=== PATIENT | female | born 1970 | race Caucasian/White ===

== ENCOUNTER 2017-08-08 07:20 | Outpatient (CLI) | payer OTHER ==
--- NOTE | 2017-08-08 16:41 | CT Report ---
EXAM: CT LUMBAR SPINE WITHOUT CONTRAST EXAM DATE: 08/08/2017 08:04 AM. CLINICAL HISTORY: Pain, decreased range of motion, trauma. COMPARISONS: None. TECHNIQUE: Thin-section axial images were acquired of the lumbar spine from T12 to S1 without contras t. Post-processing: Coronal and sagittal reformats. Other: None. In accordance with CT protocol optimization, one or more of the following dose reduction techniques w ere utilized for this exam: automated exposure control, adjustment of mA and/or KV based on patient s ize, or use of iterative reconstructive technique. FINDINGS: Alignment: No scoliosis. 3 mm retrolisthesis at L5 on S1. Bones: Five [id number]-gctesiw lumbar vertebral bodies are present. No evidence of acute or subacute fra cture. No bone lesion. Disk Levels/Facets: Mild disk height loss and vacuum disk formation at L5-S1. Minimal disk height los s at L4-L5 with osteophytes. Evaluation of the soft tissues of the central canal mildly limited on CT . T12-L1: Unremarkable. L1-L2: Unremarkable. L2-L3: Unremarkable. L3-L4: Minimal broad-based disk bulge. No stenosis. L4-L5: Small broad-based disk bulge extending into bilateral neural foramen. Minimal bilateral facet hypertrophy. Disk effaces the anterior aspect of the thecal sac. No gross stenosis. L5-S1: Small broad-based disk bulge with subtle osteophyte. Minimal bilateral facet hypertrophy. Disk minimally effaces the anterior aspect of the thecal sac and may contact the bilateral traversing S1 nerve roots. No neural foramen stenosis. Musculature: No fatty atrophy. Other: Minimal atherosclerosis. The visualized retroperitoneum is otherwise unremarkable. Mild degenerative changes at the sacroiliac joints. IMPRESSION: 1. No evidence of acute or subacute fracture. 2. Mild degenerative disk and minimal degenerative facet changes in the lower lumbar spine. 3. Small disk osteophyte complex L5-S1 minimally effaces the anterior aspect of the thecal sac and ma y contact the bilateral traversing S1 nerve roots. 4. Small broad-based disk bulge at L4-L5 minimally effaces the anterior aspect of the thecal sac. 5. No gross central canal or neural foramen stenosis. [facility] Referring Provider Line: [phone] SITE ID: [id number]
--- NOTE | 2017-08-08 16:41 | CT Report ---
EXAM: CT THORACIC SPINE WITHOUT CONTRAST EXAM DATE: 08/08/2017 08:04 AM. CLINICAL HISTORY: Pain, decreased range of motion, trauma. COMPARISONS: Chest radiographs 02/05/2008. TECHNIQUE: Thin-section axial images were acquired of the thoracic spine from C7 to L1 without contra st. Post-processing: Coronal and sagittal reformats. Other: None. IV Contrast: None. In accordance with CT protocol optimization, one or more of the following dose reduction techniques w ere utilized for this exam: automated exposure control, adjustment of mA and/or KV based on patient s ize, or use of iterative reconstructive technique. FINDINGS: Alignment: Mild S-shaped curvature with convex left component in the upper thoracic spine and convex right component in the mid thoracic spine. No spondylolisthesis. Bones: Evaluation of the cervicothoracic junction mildly limited due to attenuation artifact and kaylin on. No evidence of acute or subacute fracture. Small Schmorl's node at the superior endplate of T8. Disk Levels/Facets: Minimal disk height loss and anterior osteophytes in the midthoracic spine. Evaluation for small disk herniation limited on CT. C6-C7: Small disk osteophyte complex partially visualized. Minimal central canal stenosis. C7-t1: Minimal disk osteophyte complex. Mild right and moderate left facet hypertrophy. No stenosis. T1-T2: Mild bilateral facet hypertrophy. No stenosis. T2-T3: Minimal bilateral facet hypertrophy. No stenosis. T3-T4: Minimal bilateral facet hypertrophy. No stenosis. T4-T5: Minimal bilateral facet hypertrophy. No stenosis. T5-T6: Unremarkable. T6-T7: Unremarkable. T7-T8: Unremarkable. T8-T9: Unremarkable. T9-T10: Minimal bilateral facet hypertrophy. No stenosis. T10-T11: Minimal bilateral facet hypertrophy. No stenosis. T11-T12: Minimal bilateral facet hypertrophy. No stenosis. T12-L1: Unremarkable. Musculature: No fatty atrophy. Other: The visualized mediastinum, lungs, and upper abdomen are unremarkable. IMPRESSION: 1. No evidence of acute or subacute fracture. 2. Mild S-shaped curvature. 3. Minimal degenerative disk and mild degenerative facet changes. 4. No gross central canal or neural foramen stenosis. [facility] Referring Provider Line: [phone] SITE ID: [id number]
== END 2017-08-08 07:21 | disposition home or self-care (01) ==
LOC: DI 07:20
PROVIDERS: ATTEND Physician Assistant
DX: M47.894 Other spondylosis, thoracic region (principal); M41.84 Other forms of scoliosis, thoracic region; M51.34 Other intervertebral disc degeneration, thoracic region; M51.36 Other intervertebral disc degeneration, lumbar region; M51.37 Other intervertebral disc degeneration, lumbosacral region; M47.896 Other spondylosis, lumbar region; M47.897 Other spondylosis, lumbosacral region; M43.17 Spondylolisthesis, lumbosacral region
CPT/HCPCS: 72128; 72131

== ENCOUNTER 2020-02-15 07:32 | Outpatient (CLI) | payer BC, OTHER ==
[2020-02-15 15:50] LABS: ALBUMIN 4.6 g/dL (3.2-5.5); ALBUMIN/GLOBULIN RATIO 1.6 (1.0-2.2); ALKALINE PHOSPHATASE 65 IU/L (42-121); ALT ALANINE AMINOTRANSFERASE 16 IU/L (10-60); AST ASPARTATE AMINOTRANSFERASE 21 IU/L (10-42); BILIRUBIN,TOTAL 0.8 mg/dL (0.2-1.0); BUN - BLOOD UREA NITROGEN 23 mg/dL (6-20); CALCIUM 9.7 mg/dL (8.5-10.3); CARBON DIOXIDE - CO2 27 mmol/L (21-32); CHLORIDE 104 mmol/L (101-111); CHOL/HDL RATIO 4.7 (<4.4); CHOLESTEROL 279 mg/dL; CREATININE 0.8 mg/dL (0.4-1.0); GLUCOSE 93 mg/dL (70-100); HDL CHOLESTEROL 59 mg/dL; LDL CHOLESTEROL,CALCULATED 197 mg/dL; LDL/HDL RATIO 3.3 (<4.4); SODIUM 140 mmol/L (135-145); TOTAL PROTEIN 7.4 g/dL (6.7-8.2); VLDL CHOLESTEROL 23 mg/dL
== END 2020-02-15 07:33 | disposition home or self-care (01) ==
LOC: LAB.S 07:32
PROVIDERS: ATTEND Internal Medicine
DX: E78.5 Hyperlipidemia, unspecified (principal); Z82.3 Family history of stroke
CPT/HCPCS: 36415; 80053; 80061; 83721; 84443

== ENCOUNTER 2022-05-26 11:08 | Outpatient (CLI) | payer BC | END 2022-05-26 11:09 | disposition short-term general hospital (02) | LOC: EMS 11:08 | DX: R55 Syncope and collapse (principal); R10.9 Unspecified abdominal pain | CPT/HCPCS: A0425; A0429 ==

== ENCOUNTER 2022-07-22 08:56 | Outpatient (CLI) | payer BC ==
[2022-07-22 14:39] LABS: BASOPHILS % (AUTO) 0.9 %; EOSINOPHILS # (AUTO) 0.1 10^3/uL (0.0-0.7); EOSINOPHILS % (AUTO) 2.9 %; HGB - HEMOGLOBIN 11.7 g/dL (12.0-16.0); LYMPHOCYTES # (AUTO) 1.9 10^3/uL (1.5-3.5); LYMPHOCYTES % (AUTO) 54.4 %; MEAN CORPUSCULAR HEMOGLOBIN 29.1 pg (27.0-31.0); MEAN CORPUSCULAR HGB CONC 32.5 g/dL (32.0-36.0); MEAN CORPUSCULAR VOLUME 89.6 fL (81.0-99.0); MEAN PLATELET VOLUME 11.5 fL (7.9-10.8); MONOCYTES # (AUTO) 0.4 10^3/uL (0.0-1.0); MONOCYTES % (AUTO) 10.3 %; NEUTROPHILS # (AUTO) 1.1 10^3/uL (1.5-6.6); NEUTROPHILS % (AUTO) 31.5 %; PLT - PLATELET COUNT 150 10^3/uL (130-450); RED BLOOD COUNT 4.02 10^6/uL (4.20-5.40); RED CELL DISTRIBUTION WIDTH 12.3 % (12.0-15.0); WHITE BLOOD COUNT 3.4 x10^3/uL (4.8-10.8)
[2022-07-22 15:01] LABS: ALBUMIN 4.2 g/dL (3.2-5.5); ALBUMIN/GLOBULIN RATIO 1.5 (1.0-2.2); ALKALINE PHOSPHATASE 62 IU/L (42-121); ALT ALANINE AMINOTRANSFERASE 13 IU/L (10-60); AST ASPARTATE AMINOTRANSFERASE 21 IU/L (10-42); BILIRUBIN,TOTAL 0.6 mg/dL (0.2-1.0); BUN - BLOOD UREA NITROGEN 20 mg/dL (6-20); CALCIUM 9.2 mg/dL (8.5-10.3); CARBON DIOXIDE - CO2 28 mmol/L (21-32); CHLORIDE 107 mmol/L (101-111); CHOLESTEROL 232 mg/dL; CREATININE 0.8 mg/dL (0.4-1.0); GFR - MDRD 75 (>89); GLUCOSE 95 mg/dL (70-100); HDL CHOLESTEROL 58 mg/dL; LDL CHOLESTEROL,CALCULATED 156 mg/dL; LDL/HDL RATIO 2.7 (<4.4); POTASSIUM 4.2 mmol/L (3.5-5.0); SODIUM 140 mmol/L (135-145); TRIGLYCERIDES 89 mg/dL; VLDL CHOLESTEROL 18 mg/dL
== END 2022-07-22 08:57 | disposition home or self-care (01) ==
LOC: LAB.S 08:56
PROVIDERS: ATTEND Internal Medicine
DX: Z00.00 Encounter for general adult medical examination without abnormal findings (principal)
CPT/HCPCS: 36415; 80053; 80061; 83721; 84443; 85025

== ENCOUNTER 2023-01-20 08:09 | Outpatient (CLI) | payer BC ==
[2023-01-20 15:12] LABS: EOSINOPHILS # (AUTO) 0.1 10^3/uL (0.0-0.7); EOSINOPHILS % (AUTO) 2.1 %; HGB - HEMOGLOBIN 11.1 g/dL (12.0-16.0); LYMPHOCYTES # (AUTO) 1.7 10^3/uL (1.5-3.5); LYMPHOCYTES % (AUTO) 44.1 %; MEAN CORPUSCULAR HEMOGLOBIN 28.6 pg (27.0-31.0); MEAN CORPUSCULAR HGB CONC 31.7 g/dL (32.0-36.0); MEAN CORPUSCULAR VOLUME 90.2 fL (81.0-99.0); MEAN PLATELET VOLUME 11.9 fL (7.9-10.8); MONOCYTES # (AUTO) 0.3 10^3/uL (0.0-1.0); MONOCYTES % (AUTO) 8.5 %; NEUTROPHILS # (AUTO) 1.7 10^3/uL (1.5-6.6); PLT - PLATELET COUNT 168 10^3/uL (130-450); RED BLOOD COUNT 3.88 10^6/uL (4.20-5.40); RED CELL DISTRIBUTION WIDTH 12.2 % (12.0-15.0); WHITE BLOOD COUNT 3.9 x10^3/uL (4.8-10.8)
[2023-01-20 15:56] LABS: CHOL/HDL RATIO 2.9 (<4.4); CHOLESTEROL 150 mg/dL; HDL CHOLESTEROL 51 mg/dL; LDL CHOLESTEROL,CALCULATED 83 mg/dL; LDL/HDL RATIO 1.6 (<4.4); TRIGLYCERIDES 79 mg/dL (48-352); VLDL CHOLESTEROL 16 mg/dL
== END 2023-01-20 08:10 | disposition home or self-care (01) ==
LOC: LAB.S 08:09
PROVIDERS: ATTEND Internal Medicine
DX: D64.9 Anemia, unspecified (principal); E78.5 Hyperlipidemia, unspecified
CPT/HCPCS: 36415; 80061; 83721; 85025

== ENCOUNTER 2023-01-24 08:02 | Outpatient (CLI) | payer BC ==
[2023-01-24 15:23] LABS: % IRON SATURATION 25 % (20-50); IRON 92 ug/dL (50-212); TOTAL IRON BINDING CAPACITY 363 ug/dL (250-450); TRANSFERRIN 259 mg/dL (203-362)
== END 2023-01-24 08:03 | disposition home or self-care (01) ==
LOC: LAB.S 08:02
PROVIDERS: ATTEND Physician Assistant
DX: D64.9 Anemia, unspecified (principal)
CPT/HCPCS: 36415; 83540; 84466